=== PATIENT | male | born 1965 | race Caucasian/White ===

== ENCOUNTER 2022-06-02 18:56 | Emergency (ER) | payer OTHER ==
[2022-06-02] MEDS ORDERED: Sodium Chloride 0.9% 2.5 ML Syringe FLUSH PRN (19:19)
[2022-06-02] MEDS ORDERED: Sodium Chloride 0.9% 10 ML Syringe FLUSH PRN (19:19)
[2022-06-02] MEDS ORDERED: Ondansetron 4 MG/2 ML SDV IVPUSH ONE (19:34)
[2022-06-02] MEDS ORDERED: Sodium Chloride 0.9% 1,000 ML IV ONE (19:34)
[2022-06-02 20:35] LABS: CARBON DIOXIDE,CO2 27.3 mmol/L (21.0-32.0); POTASSIUM,K 4.1 mmol/L (3.5-5.1)
[2022-06-02] MEDS ORDERED: LORazepam 1 MG Tab PO ONE (20:54)
== END 2022-06-02 21:25 | disposition home or self-care (01) ==
LOC: MW.ED 18:56
DX: R55 Syncope and collapse (principal)
CPT/HCPCS: 36415; 70450; 71045; 80053; 80305; 81003; 82375; 83735; 84443; 84484; 85025; 85379; 93005; 96361; 96374; 99285; A9270; J2405; J3490; J7030; 93010; 99283